=== PATIENT | female | born 1950 | race Caucasian/White ===

== ENCOUNTER 2017-04-01 13:32 | Emergency (ER) | payer OTHER ==
[~2017-04-01 13:32] MED LIST: CETI10TA34 PO; FLUT16SP24 NASAL; FLUT9.9S NS; KETO5DRO58 OP; LORA-186 PO; NAPR-260 PO
== END 2017-04-01 13:49 | disposition left against medical advice (07) ==
LOC: E/R 13:32
DX: Z53.21 Procedure and treatment not carried out due to patient leaving prior to being seen by health care provider (principal)

== ENCOUNTER 2018-09-27 11:34 | Emergency (ER) | payer OTHER ==
[~2018-09-27] VITALS: Wt 87.0 kg
[~2018-09-27 11:34] MED LIST changes: -KETO5DRO58 OP; +KETO5DRO71 OP; -NAPR-260 PO; +NAPR-985 PO
[2018-09-27] MEDS ORDERED: TETRACAINE 0.5% 4 ML OPH LEFT EYE ONE (12:00)
--- NOTE | 2018-09-27 12:24 | ERD ---
ER Documentation Chief Complaint Chief Complaint LEFT EYE PAIN AFTER PUTTING EAR DROPS IN HER EYE HPI 68-year-old female accidentally put in ear drop into her left eye. She complains of itchiness and discomfort in the medial aspect of the left eye. She reports no visual acuity changes. She washed out her eye but continued to have symptoms and was concerned that she may have "burned her eye" and came to the emergency department for evaluation. ROS All systems reviewed and are negative except as per history of present illness. Medications Home Meds Active Scripts Naproxen* (Naprosyn*) 500 Mg Tablet, 500 MG PO BID PRN for PAIN AND/OR INFL AMMATION, #30 TAB Prov:EVIN STERLING DO 11/12/15 Cetirizine Hcl* (Cetirizine Hcl*) 10 Mg Tab.chew, 10 MG PO DAILY, #30 TAB.CHEW Prov:MICHELLE HUNTER PA-C 07/13/15 Fluticasone Propionate (Flonase Allergy Relief) 9.9 Ml Tonica.susp, 9.9 ML NS DAILY, #1 Prov:MICHELLE HUNTER PA-C 07/13/15 Ketotifen Fumarate (ZADITOR) 5 Ml Drops, 5 ML OP BID, #1 BOTTLE Prov:MICHELLE HUNTER PA-C 07/13/15 Reported Medications Loratadine* (Claritin*) 10 Mg Tablet, 10 MG PO DAILY, TAB 07/08/14 Fluticasone Propionate* (Flonase* Nasal) 50 Mcg/Tonica - 16 Gm Tonica.susp, 2 SPRAY NASAL DAILY, SPRAY TO EACH NOSTRIL 07/08/14 Allergies Allergies: Coded Allergies: Penicillins (Verified Allergy, Unknown, 07/08/14) codeine (Verified Allergy, Unknown, 07/08/14) diphenhydramine (Verified Allergy, Unknown, 07/08/14) ibuprofen (Verified Allergy, Unknown, 07/08/14) PMhx/Soc History of Surgery: Yes (lombectomy, LEON, APPY ) Anesthesia Reaction: No Hx Neurological Disorder: No Hx Respiratory Disorders: No Hx Cardiac Disorders: No Hx Psychiatric Problems: No Hx Miscellaneous Medical Probl: Yes (kidney cyst, liver cyst, CATARACT) Hx Alcohol Use: Yes (occassional) Hx Substance Use: No Hx Tobacco Use: No Smoking Status: Never smoker Physical Exam Vitals Vital Signs Date Temp Pulse Resp B/P (MAP) Pulse Ox O2 O2 Flow FiO2 Time Delivery Rate 09/27/18 98.9 78 22 225/110 99 11:37 (148) Physical Exam General: Well-developed well-nourished no distress Eye: Visual acuity is grossly normal. Pupils are equal, midrange and reactive bilaterally. The left eye, which is the area of concern demonstrates no evidence of concerns to the lids, lashes or lacrimal ducts. There is no evidence of foreign body or conjunctivitis. There is no visual field deficit. Psych: Patient is significantly anxious but with an otherwise normal mental s tatus. Results 24 hrs Current Medications Medications Dose Sig/Gabe Start Time Status Last (Trade) Ordered Route PRN Stop Time Admin Dose Reason Admin Tetracaine 1 drop ONCE ONCE 09/27/18 DC 09/27/18 HCl LEFT EYE 12:00 12:02 (Tetracaine 09/27/18 12:01 0.5% Steri-Unit Zhane) Procedures/MDM Patient was taken to a room, seen and examined Tetracaine drops was applied to the left eye with complete resolution of the patient's symptoms. The eye was then washed out. She had no further burning. She was reassured and her anxiety improved. Medical decision makin-year-old female presents after a nontoxic exposure to her left eye. She has no evidence of conjunctivitis or significant exposure. Her visual acuity is normal. She is referred back to her outpatient eye doctor for further evaluation but otherwise appears to be stable at this time. Departure Diagnosis: Primary Impression: Pain in eye Condition: Stable Patient Instructions: Eye Exposure, Chemical Additional Instructions: Please see your eye doctor on Saturday. Return immediately for any increased pain, fever, any other concerns ARNAUD JONES Sep 27, 2018 12:24
[2018-09-27 12:31] VITALS: BP 113/64; PULSE 74; RESP 18
== END 2018-09-27 12:32 | disposition home or self-care (01) ==
LOC: E/R 11:34
DX: H57.12 Ocular pain, left eye (principal)
CPT/HCPCS: 99282